=== PATIENT | male | born 1990 | race Caucasian/White ===

== ENCOUNTER 2022-04-15 21:52 | Emergency (ER) | payer SELFPAY ==
[~2022-04-15] VITALS: Ht 160 cm; Wt 58.7 kg
[2022-04-16] MEDS ORDERED: AMOX1TAB16 MT (00:24)
[2022-04-16] MEDS ORDERED: NAPR-1176 MT (00:24)
[2022-04-16 00:30] VITALS: BP 152/87
[2022-04-16] MEDS ORDERED: AMOXICILLIN/POTASSIUM CLAVULANATE 875/125MG TAB PO ONE (00:30)
[2022-04-16] MEDS ORDERED: KETOROLAC 15MG/ML VIAL IM ONE (00:30)
[2022-04-16] MEDS ORDERED: DEXAMETHASONE 10 MG/ML VIAL IM ONE (00:30)
== END 2022-04-16 01:02 | disposition home or self-care (01) ==
LOC: ER 21:52
DX: J03.90 Acute tonsillitis, unspecified (principal); Z85.9 Personal history of malignant neoplasm, unspecified; R09.81 Nasal congestion
CPT/HCPCS: 87070; 87430; 96372; 99284; J1100; J1885; Z7610